=== PATIENT | female | born 1965 | race Caucasian/White ===

== ENCOUNTER → 2025-08-22 13:28 | Outpatient (REF) | payer BC, SELFPAY | LOC: HWWDC 13:28 | PROVIDERS: ATTENDING PHYSICIAN Nurse Practitioner Adult Health; FAMILY PHYSICIAN Nurse Practitioner Family | DX: Z12.31 Encounter for screening mammogram for malignant neoplasm of breast (principal) | CPT/HCPCS: 77063; 77067 ==